=== PATIENT | female | born 1960 | race Two or more races ===

== ENCOUNTER 2018-05-05 09:41 | Emergency (ER) | payer MEDICAID ==
[~2018-05-05] VITALS: Ht 170.2 cm; Wt 108.9 kg
[~2018-05-05 09:41] MED LIST: DOXY-216 PO; LISI-646 PO; METF-370 PO; MUPI2OIN10 TOP
[2018-05-05 09:56] VITALS: BP 145/61
[2018-05-05] MEDS ORDERED: KETOROLAC TROMETH 60MG/2ML VIAL IM ONE (11:00)
== END 2018-05-05 11:19 | disposition home or self-care (01) ==
LOC: ER 09:41
DX: M54.9 Dorsalgia, unspecified (principal); I10 Essential (primary) hypertension; E11.9 Type 2 diabetes mellitus without complications; E78.00 Pure hypercholesterolemia, unspecified; Z79.899 Other long term (current) drug therapy; Z79.84 Long term (current) use of oral hypoglycemic drugs
CPT/HCPCS: 74176; 81002; 82962; 96372; 99284; J1885

== ENCOUNTER 2023-10-21 16:34 | Emergency (ER) | payer MEDICAID ==
[~2023-10-21] VITALS: Ht 170.2 cm; Wt 100.9 kg
[~2023-10-21 16:34] MED LIST changes: -DOXY-216 PO; +DOXY-286 PO; -LISI-646 PO; +LISI20TA56 PO
[2023-10-21 17:01] VITALS: BP 168/98; PULSE 70; RESP 16; O2SAT 98
== END 2023-10-21 20:32 | disposition home or self-care (01) ==
LOC: ER 16:34
DX: S40.871D Other superficial bite of right upper arm, subsequent encounter (principal); E11.9 Type 2 diabetes mellitus without complications; I10 Essential (primary) hypertension; E78.5 Hyperlipidemia, unspecified; W54.0XXD Bitten by dog, subsequent encounter